=== PATIENT | male | born 1995 | race American Indian/Alaskan Native ===

== ENCOUNTER 2019-05-11 10:31 | Emergency (ER) | payer SELFPAY ==
[2019-05-11 10:40] VITALS: BP 127/73
--- NOTE | 2019-05-11 10:57 | Emergency Department Report ---
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 CO RUNNY NOSE. NO FEVER/CHILLS/SOB/WHEEZING. PT HAS HX ASTHMA ON NO MEDS. AMBULATORY AND NON TOXIC ON EXAM. ED Review of Systems ROS: Stated complaint: CHEST PAIN/COLD SYM Other details as noted in HPI Comment: All other systems reviewed and negative ED Past Medical Hx - Past Medical History Previous Medical History?: Yes Hx Asthma: Yes - Surgical History Past Surgical History?: Yes Additional Surgical History: tumor on back - Family History Family history: no significant - Social History Smoking Status: Current Every Day Smoker Substance Use Type: None - Medications Home Medications: Home Medications Medication Instructions Recorded Confirmed Last Taken Type Albuterol Sulfate [Proair 90 mcg IH QID PRN #1 [email or web address] 05/11/19 Unknown Rx Respiclick] Cetirizine HCl [ZyrTEC] 10 mg PO DAILY #30 capsule 05/11/19 Unknown Rx Fluticasone [Flonase] 1 spray NS QDAY #1 bottle 05/11/19 Unknown Rx predniSONE [Deltasone] 20 mg PO DAILY #5 tablet 05/11/19 Unknown Rx Minor Respiratory Exam - Exam General: Vital signs noted. No distress. Alert and acting appropriately. HEENT: Yes Moist Mucous Membranes, No Pharyngeal Erythema, No Pharyngeal Exudates Ear: Neither TM Bulge, Neither TM Erythema, Neither EAC Pain, Neither EAC Discharge Neck: Yes Supple, No Adenopathy Lungs: Yes Good Air Exchange, No Wheezes, No Ronchi Heart: Yes Murmur Abdomen: No Tenderness Skin: No Rash Neurologic: Alert and oriented, no deficits. Musculoskeletal: Unremarkable. ED Course Vital Signs 05/11/19 10:38 Temperature 98.3 F Pulse Rate 83 Respiratory 16 Rate Blood Pressure 127/73 O2 Sat by Pulse 98 Oximetry ED Medical Decision Making - Medical Decision Making no fever no chills ambulatory VS normal pos max and frontal sinus tenderness rhinorrhea on exam lungs cta dc home with dc plan of care and pcp follow up Vital Signs 05/11/19 10:38 Temperature 98.3 F Pulse Rate 83 Respiratory 16 Rate Blood Pressure 127/73 O2 Sat by Pulse 98 Oximetry - Differential Diagnosis simple uri Critical care attestation.: If time is entered above; I have spent that time in minutes in the direct care of this critically ill patient, excluding procedure time. ED Disposition Clinical Impression: Sinusitis, History of asthma Disposition: DC-01 TO HOME OR SELFCARE Is pt being admited?: No Does the pt Need Aspirin: No Condition: Stable Instructions: Upper Respiratory Infection (ED) Additional Instructions: MEDS ORDERED TODAY STAY HYDRATED WHILE AT WORK FOLLOW UP PCP REFERRAL BELOW Prescriptions: predniSONE [Deltasone] 20 mg PO DAILY #5 tablet Fluticasone [Flonase] 1 spray NS QDAY #1 bottle Albuterol Sulfate [Proair Respiclick] 90 mcg IH QID PRN #1 aer.[email or web address] PRN Reason: Wheezing Cetirizine HCl [ZyrTEC] 10 mg PO DAILY #30 capsule Referrals: EARL MURGUIA MD [Staff Physician] - 3-5 Days Time of Disposition: 10:55
== END 2019-05-11 11:15 | disposition home or self-care (01) ==
LOC: ED 10:31
DX: J32.9 Chronic sinusitis, unspecified (principal); F17.200 Nicotine dependence, unspecified, uncomplicated; Z87.09 Personal history of other diseases of the respiratory system